=== PATIENT | male | born 1960 | race Caucasian/White ===

== ENCOUNTER 2020-06-18 23:23 | Emergency (ER) | payer BC, OTHER ==
[~2020-06-18 23:23] MED LIST: BACTROBAN OINT22 GM EXT
[2020-06-19 00:39] LABS: HEMOGLOBIN 14.6 gm/dl (14.0-17.5); RED BLOOD COUNT 4.44 M/UL (4.20-5.50); WHITE BLOOD COUNT 12.8 K/UL (4.5-11.0)
[2020-06-19 00:59] LABS: BUN/CREATININE RATIO 25 (0-10)
== END 2020-06-19 06:00 | disposition home or self-care (01) ==
LOC: ER1 23:23
PROVIDERS: Physician Assistant
DX: I70.201 Unspecified atherosclerosis of native arteries of extremities, right leg (principal); I10 Essential (primary) hypertension; F17.210 Nicotine dependence, cigarettes, uncomplicated
CPT/HCPCS: 36415; 80053; 85025; 85610; 85652; 85730; 86140; 93926; 96374; 96375; 99284; J1170; J1644; J2270; J2405

== ENCOUNTER 2021-01-06 18:02 | Emergency (ER) | payer BC ==
[2021-01-06 19:21] LABS: HEMOGLOBIN 13.9 gm/dl (14.0-17.5); RED BLOOD COUNT 4.37 M/UL (4.20-5.50); WHITE BLOOD COUNT 8.9 K/UL (4.5-11.0)
[2021-01-06 20:33] LABS: BUN/CREATININE RATIO 18 (0-10)
== END 2021-01-06 20:33 | disposition home or self-care (01) ==
LOC: ER1 18:02
PROVIDERS: Physician Assistant
DX: M79.81 Nontraumatic hematoma of soft tissue (principal); E78.5 Hyperlipidemia, unspecified; I10 Essential (primary) hypertension; E11.9 Type 2 diabetes mellitus without complications; F17.210 Nicotine dependence, cigarettes, uncomplicated
CPT/HCPCS: 80053; 82550; 82553; 83874; 84484; 85025; 85610; 85730; 93926; 93971; 99283

== ENCOUNTER 2021-12-29 18:47 | Emergency (ER) | payer BC ==
[2021-12-29 19:27] LABS: HEMOGLOBIN 14.7 gm/dl (14.0-17.5); RED BLOOD COUNT 4.59 M/UL (4.20-5.50); WHITE BLOOD COUNT 10.5 K/UL (4.5-11.0)
[2021-12-29 19:51] LABS: BUN/CREATININE RATIO 21 (0-10)
== END 2021-12-29 22:30 | disposition home or self-care (01) ==
LOC: ER1 18:47
PROVIDERS: Physician Assistant
DX: S61.511A Laceration without foreign body of right wrist, initial encounter (principal); F17.210 Nicotine dependence, cigarettes, uncomplicated; I11.9 Hypertensive heart disease without heart failure; E11.9 Type 2 diabetes mellitus without complications; Z23 Encounter for immunization; W19.XXXA Unspecified fall, initial encounter; Y92.009 Unspecified place in unspecified non-institutional (private) residence as the place of occurrence of the external cause
CPT/HCPCS: 12031; 80053; 85025; 85610; 85730; 90471; 90715; 99283